=== PATIENT | male | born 2005 | race Two or more races ===

== ENCOUNTER 2025-01-04 00:47 | Emergency (ER) | payer OTHER, SELFPAY ==
[2025-01-04 00:48] VITALS: BMI 23.6
[2025-01-04 00:51] VITALS: BP 144/104; PULSE 122; RESP 20; TEMP 37.1; O2SAT 97
--- NOTE | 2025-01-04 00:51 | PC.NURSE ---
I PUT A CALL PUT TO [facility] AND SPOKE WITH ANTWON. THEY WILL BE SENDING OFFICERS OUT.
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
[2025-01-04] MEDS: SODIUM CHLORIDE 0.9% 1000 ML 1,000 ML 999 ML IV (01:03)
[2025-01-04] MEDS: AMPICILLIN/SULBAC INJ 3 GM in SODIUM CHLORIDE 0.9% (POP) 100 ML IV (01:03)
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
[2025-01-04] MEDS: ONDANSETRON INJ 2 MG/ML INJ 2 ML 4 MG IVP (01:04)
[2025-01-04] MEDS: KETOROLAC INJ 30 MG/ML VIAL IVP (01:06)
[2025-01-04] MEDS: DIPHTH,PERTUSS(ACELL),TET VAC 0.5 ML SYR- ADULT IMi (01:08)
[2025-01-04 01:18] LABS: Basophils # (Auto) 0.0 Thou/mm3 (0.0-0.2); Basophils % (Auto) 0 % (0-2.5); Eosinophils # (Auto) 0.0 Thou/mm3 (0.0-0.5); Eosinophils % (Auto) 0 % (0-10); Hematocrit 46.3 % (41.0-53.0); Hemoglobin 16.4 g/dL (13.5-16.0); Immature Granulocytes Auto 0.03 Thou/mm3 (0.00-0.00); Lymphocytes # (Auto) 2.4 Thou/mm3 (1.0-4.8); Lymphocytes % (Auto) 22 % (10-50); Mean Corpuscular HGB Conc 35.4 g/dl (31.0-37.0); Mean Corpuscular Hemoglobin 30.0 pg (25.0-35.0); Mean Corpuscular Volume 85 fL (80-100); Monocytes # (Auto) 0.5 Thou/mm3 (0.0-0.8); Monocytes % (Auto) 5 % (0-12); Neutrophils # (Auto) 8.1 Thou/mm3 (1.8-7.7); Neutrophils % (Auto) 73 % (37-80); Nucleated Red Blood Cell # 0.00 Thou/mm3 (0.00-0.00); Nucleated Red Blood Cell % 0 /100 WBC (0); Platelet Count 300 Thou/mm3 (140-440); RDW Standard Deviation 36.0 fL (35.1-43.9); Red Blood Count 5.46 Miln/mm3 (4.50-5.90); White Blood Count 11.1 Thou/mm3 (3.8-10.6)
[2025-01-04 01:28] LABS: INR 1.1 (0.9-1.3); Partial Thromboplastin Time 28.1 Seconds (22.0-36.0); Prothrombin Time 11.6 Seconds (9.0-12.2)
[2025-01-04 01:38] LABS: Alanine Aminotransferase 17 U/L (10-49); Albumin, Serum 5.0 gm/dL (3.5-5.0); Albumin/Globulin Ratio 2.0 (1.2-2.2); Alcohol, Blood Medical 223.2 mg/dL (0-10.0); Alkaline Phosphatase 99 U/L (46-116); Anion Gap 15 (7-16); Aspartate Amino Transferase 26 U/L (0-34); BUN/Creatinine Ratio 12 Ratio (12-20); Bilirubin,Direct 0.2 mg/dL (0.0-0.3); Bilirubin,Total 0.6 mg/dL (0.3-1.2); Blood Urea Nitrogen 14 mg/dL (9-23); Calcium 10.3 mg/dL (8.3-10.6); Calcium (Corrected) 10.3 mg/dL (8.5-10.1); Carbon Dioxide 18.5 mMol/L (20.0-31.0); Chloride 108 mMol/L (98-107); Creatinine (Component) 1.2 mg/dL (0.6-1.3); Estimated Creatinine Clearance 94.2 mL/min (>60); Globulin 2.5 gm/dL (2.3-3.5); Glucose 105 mg/dL (74-106); Magnesium 1.9 mg/dL (1.6-2.6); Osmolality,Calculated 281 (275-295); Potassium 3.2 mMol/L (3.4-5.1); Sodium 141 mMol/L (136-145); Total Protein 7.5 gm/dL (5.7-8.2); eGFR > 60 See Note
[2025-01-04 01:49] LABS: Amphetamine/Methamp Scrn,U Negative (Negative); Barbiturate Screen,Urine Negative (Negative); Benzodiazepines Screen,Urine Negative (Negative); Benzoylecgonine Screen, Ur Negative (Negative); Fentanyl Screen,Urine Negative (Negative); Opiate Screen,Urine Negative (Negative); THC Screen,Urine Negative (Negative)
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
[2025-01-04] MEDS: LIDOCAINE HCL 1% 20 ML VIAL INFL (02:24)
[2025-01-04 03:07] VITALS: BP 130/80; PULSE 100; RESP 18; TEMP 36.8; O2SAT 96
[2025-01-04] MEDS: POTASSIUM CHLORIDE 10% 20 MEQ/15 ML UDC 40 MEQ PO (03:11)
[2025-01-04] MEDS: BACITRACIN OINT 1 GM PACKET TOP (03:11)
== END 2025-01-04 03:35 | disposition home or self-care (01) ==
PROVIDERS: Emergency Provider Emergency Medicine
DX: S11.91XA Laceration without foreign body of unspecified part of neck, initial encounter (principal); F10.129 Alcohol abuse with intoxication, unspecified; E87.6 Hypokalemia; W26.0XXA Contact with knife, initial encounter; Y90.7 Blood alcohol level of 200-239 mg/100 ml; Z23 Encounter for immunization
CPT/HCPCS: 12044; 36415; 70498; 80053; 80307; 80320; 82248; 83735; 85025; 85610; 85730; 90471; 90715; 96365; 96375; 99283; A4649; J0295; J1885; J2405; J3490; J7030; Q9967; A9270; G0480

== ENCOUNTER 2025-01-10 09:28 | Emergency (ER) | payer OTHER, SELFPAY ==
[2025-01-10 09:51] VITALS: BP 132/80; PULSE 54; RESP 19; TEMP 36.7; O2SAT 98
[2025-01-10 10:12] VITALS: BMI 23.2
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
[2025-01-10] MEDS: AMOXICILLIN/POT CLAV 875 TABLET 1 TAB PO (10:34)
== END 2025-01-10 11:14 | disposition home or self-care (01) ==
LOC: SERX 10:39
PROVIDERS: Emergency Provider Emergency Medicine; PCP Family Medicine
DX: S11.91XD Laceration without foreign body of unspecified part of neck, subsequent encounter (principal); L03.221 Cellulitis of neck; X58.XXXD Exposure to other specified factors, subsequent encounter
CPT/HCPCS: 99282; A9270